=== PATIENT | female | born 1985 | race Caucasian/White ===

== ENCOUNTER 2020-11-11 15:47 | Observation (INO) ==
--- NOTE | 2020-11-11 16:12 | Emergency Department Note ---
History of Present Illness General Chief complaint: Cardiac Assessment Stated complaint: CHEST PAIN,SHOULDER PAIN,MIGHT HAVE FEVER,FATIGUE Time Seen by Provider: 11/11/20 15:56 Source: patient Mode of arrival: ambulatory Limitations: no limitations History of Present Illness Provider complaint: Chest pain Onset (ago): day(s) 2 Location: chest Radiation: back Maximum Pain Intensity: 1 Quality: + constant Exacerbated By: + movement Associated symptoms: + shortness of breath Treatments prior to arrival: NSAID This is a 35-year-old female resents emergency department with complaints of chest pain. Patient states 2 days ago she initially developed pain in the area over her left shoulder/left trapezius. States that perhaps this was musculoskeletal in nature due to working on her computer at home. She then states pain seemed to come down laterally along the lateral aspect the ribs and then anteriorly to the ribs under the left breast. Patient states the pain is worse with movement including specifically laughing, or taking a deep breath. P atient states pain is also worse lying down and she feels short of breath laying down. Patient denies accompanying fevers, chills, nausea, vomiting, leg swelling, calf pain, or recent URI symptoms. No prior cardiac history. No significant family history of heart problems or PE/DVT. Patient denies any more recent illness over the last several weeks. Patient has been vaccinated for Covid, finishing her Pfizer series approximately 1 month ago. No use of OCPs or other hormonal therapy. Pt seen during a time of high acuity and national emergency pandemic while wearing PPE. Home Medications Medication Instructions Recorded Confirmed Type cefdinir 300 mg PO BID 4 Days #8 cap 11/12/20 Rx doxycycline hyclate 100 mg PO BID 4 Days #8 cap 11/12/20 Rx rivaroxaban [Xarelto] 15 mg PO BID 21 Days #42 tab 11/12/20 Rx Allergies Allergy/AdvReac Type Severity Reaction Status Date / Time No Known Allergies Allergy Unverified 11/11/20 16:54 Past Med/Surg History Medical History No pertinent past medical history Surgical History (Updated 11/11/20 @ 19:58 by Ryan Kellogg) No pertinent past surgical history Family History Denies family history of Deep vein thrombosis Pulmonary embolism Social History (Updated 11/11/20 @ 19:59 by Ryan Kellogg) Smoking Status: Never smoker Second Hand Exposure: No; Hx Alcohol Use: No Hx Substance Use: No Preferred Language: Georgian Communication Ability: Effective Surveillance Systems Engineer Required: No Beliefs That Will Affect Care: None marital status: Current Living Situation: Spouse current occupational status: employed 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 and A total of 10 systems reviewed and were otherwise negative Physical Exam Vital Signs Vital Signs - 24 hr 11/11/20 15:50 11/11/20 16:18 11/11/20 16:26 Temperature 36.7 C Temperature Source Oral Pulse Rate 106 H 83 Pulse Rate from SpO2 Sensor 81 Pulse Rhythm Regular Pulse Strength Normal Respiratory Rate 20 20 Respiratory Effort / Characteristics Non-Labored Spontaneous Respiratory Depth Normal Respiratory Pattern Regular Blood Pressure 123/89 116/70 Blood Pressure Mean 100 85 Blood Pressure Position Sitting Pulse Oximetry 97 97 Pulse Oximetry [Exercises] Pulse Oximetry [Resting] Oxygen Delivery Method Room Air Room Air Oxygen Flow Rate 99 Sepsis Recent Fever Within 48 Hours No Sepsis New/Unexplained Change in Mental Status No Sepsis Action Taken by Nursing No Action Required 11/11/20 17:00 11/11/20 18:00 11/11/20 18:39 Temperature Temperature Source Pulse Rate 75 81 70 Pulse Rate from SpO2 Sensor 76 77 71 Pulse Rhythm Pulse Strength Respiratory Rate 19 19 Respiratory Effort / Characteristics Respiratory Depth Respiratory Pattern Blood Pressure 107/81 Blood Pressure Mean 89 Blood Pressure Position Pulse Oximetry 97 98 98 Pulse Oximetry [Exercises] Pulse Oximetry [Resting] Oxygen Delivery Method Oxygen Flow Rate Sepsis Recent Fever Within 48 Hours Sepsis New/Unexplained Change in Mental Status Sepsis Action Taken by Nursing 11/11/20 18:42 Temperature Temperature Source Pulse Rate Pulse Rate from SpO2 Sensor Pulse Rhythm Pulse Strength Respiratory Rate Respiratory Effort / Characteristics Respiratory Depth Respiratory Pattern Blood Pressure Blood Pressure Mean Blood Pressure Position Pulse Oximetry Pulse Oximetry [Exercises] 97 Pulse Oximetry [Resting] 97 Oxygen Delivery Method Room Air Oxygen Flow Rate Sepsis Recent Fever Within 48 Hours Sepsis New/Unexplained Change in Mental Status Sepsis Action Taken by Nursing GENERAL: alert, well appearing, well nourished, no distress, non-toxic EYE EXAM: normal conjunctiva, PERRL and EOM's grossly intact OROPHARYNX: no exudate, no erythema, lips, buccal mucosa, and tongue normal and mucous membranes are moist NECK: supple, no nuchal rigidity, no adenopathy, non-tender LUNGS: Clear to auscultation. Normal chest wall mechanics, no w/r/r HEART: no murmurs, S1 normal and S2 normal ABDOMEN: abdomen soft, non-tender, normo-active bowel sounds, no masses, no rebound or guarding. BACK: Back is symmetrical on inspection and there is no deformity, no midline tenderness, no CVA tenderness. SKIN: no rashes and no bruising UPPER EXTREMITIES: upper extremities are grossly normal. FROM, nml pulses b/l. LOWER EXTREMITIES: No pitting edema. FROM, nml pulses b/l. NEURO EXAM: Normal sensorium, cranial nerves II-XII grossly intact, normal speech, no gross weakness of arms, no gross weakness of legs. Gross sensation intact. Course Course 170: Patient updated on results and need for additional CT imaging. She verbalized understanding. 1824: Patient updated on CT results. Again denies family history of DVT/PE. No recent immobilization or immobility, no recent trauma or injury. No use of hormonal agents or OCPs. 183: Discussed with Dr. Kellogg. Administered Medications Discontinued Medications Acetaminophen (Acetaminophen 500 Mg Tab) 1,000 mg PO Q6H PRN PRN Reason: Pain or Fever Stop: 12/11/20 22:50 Last Admin: 11/12/20 01:05 Dose: 1,000 mg Documented by: [id number] Cefdinir (Cefdinir 300 Mg Cap) 300 mg PO ONE STA Stop: 11/11/20 20:18 Last Admin: 11/11/20 21:06 Dose: 300 mg Documented by: [id number] Cefdinir (Cefdinir 300 Mg Cap) 300 mg PO BID [facility]; Protocol Stop: 11/19/20 08:59 Last Admin: 11/12/20 08:41 Dose: 300 mg Documented by: [id number] Doxycycline Hyclate (Doxycycline Hyclate 100 Mg Cap) 100 mg PO BID KATHIE Stop: 11/18/20 22:50 Last Admin: 11/12/20 08:40 Dose: 100 mg Documented by: [id number] Admin: 11/12/20 01:01 Dose: 100 mg Documented by: [id number] Enoxaparin Sodium (Enoxaparin 1 Mg/Kg) 60 mg 1 mg/kg (60 mg) SC NOW STA Stop: 11/11/20 18:42 Last Admin: 11/12/20 07:15 Dose: Not Given Documented by: [id number] Enoxaparin Sodium (Enoxaparin Inj 60 Mg/0.6 Ml Syr) 60 mg 1 mg/kg (60 mg) SQ NOW STA Stop: 11/11/20 19:13 Last Admin: 11/11/20 19:24 Dose: 60 mg Documented by: [id number] Enoxaparin Sodium (Enoxaparin Inj 60 Mg/0.6 Ml Syr) 60 mg SQ Q12H KATHIE Stop: 12/12/20 07:59 Last Admin: 11/12/20 08:41 Dose: 60 mg Documented by: [id number] Acetaminophen (Ofirmev) 1,000 mg in 100 mls @ 400 mls/hr IV NOW STA Stop: 11/11/20 18:18 Last Infusion: 11/11/20 19:15 Dose: 0 mls/hr Documented by: [id number] Admin: 11/11/20 18:40 Dose: 400 mls/hr Documented by: [id number] Sodium Chloride (Nss 1000ml) 1,000 mls @ 100 mls/hr IV .Q10H KATHIE Stop: 11/12/20 08:50 Last Infusion: 11/12/20 10:32 Dose: 0 mls/hr Documented by: [id number] Admin: 11/12/20 01:00 Dose: 100 mls/hr Documented by: [id number] Ioversol (Optiray 320 125ml) 87 ml IV ONCE ONE Stop: 11/11/20 17:36 Last Admin: 11/11/20 17:35 Dose: 87 ml Documented by: [id number] Lidocaine (Lidocaine 5% 1 Patch) 3 patch TD Q24H KATHIE Stop: 12/11/20 22:59 Last Admin: 11/12/20 08:42 Dose: 1 patch Documented by: [id number] Admin: 11/12/20 01:03 Dose: Not Given Documented by: [id number] Miscellaneous (Remove Lidoderm Patch) 1 ea N/A Q24H KATHIE Stop: 12/12/20 07:59 Last Admin: 11/12/20 08:41 Dose: Not Given Documented by: [id number] Medical Decision Making Differential Diagnosis Differential diagnoses includes but is not limited to acute coronary syndrome, myocardial infarction, pericarditis, pulmonary embolus, aortic dissection, pneumonia, pneumothorax, musculoskeletal, shingles, esophageal. Medical Records Attestation: I reviewed the patient's medical records. Home Medications Current Medication List: was personally reviewed by me Laboratory Data Attestation: I reviewed the patient's lab results. Result diagrams: 11/11/20 16:15 11/12/20 05:29 Lab Results 11/11/20 11/11/20 11/11/20 Range/Units 16:15 16:15 16:15 WBC 7.80 (4.8-10.8) K/uL RBC 4.06 L (4.2-5.4) M/uL Hgb 12.7 (12.0-16.0) g/dL Hct 36.6 L (37-47) % MCV 90.1 (80-100) fL MCH 31.3 (25-34) pg MCHC 34.7 (32-36) g/dL RDW Std Deviation 41.0 (36.4-46.3) fL RDW Coeff of Gayle 12.4 (11.5-14.5) % Plt Count 281 (130-400) K/uL MPV 10.1 (7.4-10.4) fL Immature Gran % (Auto) 0.3 % Neut % (Auto) 68.4 % Lymph % (Auto) 17.7 % Curry % (Auto) 11.8 % Eos % (Auto) 1.5 % Baso % (Auto) 0.3 % Neut # (Auto) 5.34 (1.4-6.5) K/uL Lymph # (Auto) 1.38 (1.2-3.4) K/uL Curry # (Auto) 0.92 H (0.11-0.59) K/uL Eos # (Auto) 0.12 (0-0.5) K/uL Baso # (Auto) 0.02 (0-0.2) K/uL Immature Gran # (Auto) 0.02 (0.00-0.02) K/uL D-Dimer 1290 H* (0-500) ug/L FEU Sodium 138 (136-145) mmol/L Potassium 4.1 (3.5-5.1) mmol/L Chloride 107 (98-107) mmol/L Carbon Dioxide 26 (21-32) mmol/L Anion Gap 5.0 (3-11) BUN 10 (7-18) mg/dl Creatinine 0.54 L (0.6-1.2) mg/dl Est Cr Clr Drug Dosing 135.1 ml/min Est GFR ( Amer) 140.7 ml/min Est GFR (Non-Af Amer) 121.4 ml/min BUN/Creatinine Ratio 18.6 (10-20) Glucose 94 (70-99) mg/dl Calcium 8.7 (8.5-10.1) mg/dl Magnesium 1.9 (1.8-2.4) mg/dl Total Bilirubin 0.4 (0.2-1) mg/dl AST 10 L (15-37) U/L ALT 18 (12-78) U/L Alkaline Phosphatase 36 L (45-117) U/L Troponin I < 0.015 (0-0.045) ng/ml NT-Pro-B Natriuret Pep 7 (0-450) pg/ml Total Protein 7.1 (6.4-8.2) gm/dl Albumin 3.4 (3.4-5.0) gm/dl Globulin 3.7 (2.5-4.0) gm/dl Albumin/Globulin Ratio 0.9 (0.9-2) HCG, Qual (Negative) 11/11/20 Range/Units 16:15 WBC (4.8-10.8) K/uL RBC (4.2-5.4) M/uL Hgb (12.0-16.0) g/dL Hct (37-47) % MCV (80-100) fL MCH (25-34) pg MCHC (32-36) g/dL RDW Std Deviation (36.4-46.3) fL RDW Coeff of Gayle (11.5-14.5) % Plt Count (130-400) K/uL MPV (7.4-10.4) fL Immature Gran % (Auto) % Neut % (Auto) % Lymph % (Auto) % Curry % (Auto) % Eos % (Auto) % Baso % (Auto) % Neut # (Auto) (1.4-6.5) K/uL Lymph # (Auto) (1.2-3.4) K/uL Curry # (Auto) (0.11-0.59) K/uL Eos # (Auto) (0-0.5) K/uL Baso # (Auto) (0-0.2) K/uL Immature Gran # (Auto) (0.00-0.02) K/uL D-Dimer (0-500) ug/L FEU Sodium (136-145) mmol/L Potassium (3.5-5.1) mmol/L Chloride (98-107) mmol/L Carbon Dioxide (21-32) mmol/L Anion Gap (3-11) BUN (7-18) mg/dl Creatinine (0.6-1.2) mg/dl Est Cr Clr Drug Dosing ml/min Est GFR ( Amer) ml/min Est GFR (Non-Af Amer) ml/min BUN/Creatinine Ratio (10-20) Glucose (70-99) mg/dl Calcium (8.5-10.1) mg/dl Magnesium (1.8-2.4) mg/dl Total Bilirubin (0.2-1) mg/dl AST (15-37) U/L ALT (12-78) U/L Alkaline Phosphatase (45-117) U/L Troponin I (0-0.045) ng/ml NT-Pro-B Natriuret Pep (0-450) pg/ml Total Protein (6.4-8.2) gm/dl Albumin (3.4-5.0) gm/dl Globulin (2.5-4.0) gm/dl Albumin/Globulin Ratio (0.9-2) HCG, Qual Negative (Negative) Imaging Data Radiologist's Impression: Chest X-Ray 11/11/20 16:09 XR chest 1V portable CLINICAL HISTORY: Chest pain. COMPARISON STUDY: No previous studies for comparison. FINDINGS: Lung volumes are normal. Lungs are clear. There is no pneumothorax. There is a possible trace left pleural effusion. Cardiac size is normal. Mediastinal contours are normal. There is no evidence for pulmonary edema. IMPRESSION: Possible trace left pleural effusion. ACT 112: Negative or not required by law. Electronically signed by: Jerome Herrera M.D. 11/11/2020 4:45 PM Chest CTA 11/11/20 17:04 CT ANGIOGRAM OF THE CHEST CLINICAL HISTORY: PE COMPARISON STUDY: No previous studies for comparison. TECHNIQUE: Following the IV administration of 87 mL of Optiray, CT angiogram of the thorax was performed from the thoracic inlet to the lung bases utilizing the pulmonary embolus protocol. Images are reviewed in the axial, sagittal, and coronal planes. IV contrast was administered without complication. MIP imaging was performed. A dose lowering technique was utilized adhering to the principles of ALARA. CT DOSE: 234.06 mGy.cm FINDINGS: There is adequate opacification within main pulmonary artery. Few small pulmonary emboli are seen within distal branches of the pulmonary artery supplying bilateral lower lobes. Main pulmonary artery is slightly prominent. Heart is normal in size without evidence of right heart strain or pericardial effusion. No coronary calcifications demonstrated. Visualized portion of thyroid gland shows no evidence of focal lesions. Esophagus is normal. There is no axillary, supra clavicle or internal mammary lymphadenopathy seen. Mild soft tissue prominence within the anterior mediastinum interspersed with fat likely representing thymic remnants. No definite mediastinal lymphadenopathy seen however evaluation of mediastinum is limited due to beam hardening artifact from vasculature. Tracheobronchial tree is patent. Small atelectasis is seen in bilateral bases. Small left pleural effusion is demonstrated. This study is acquired during partial expiratory phase, evaluation of lung parenchyma is limited due to respiratory motion artifact. Small area of consolidative opacity seen within the lingula associated with septal thickening. No pleural effusions are visualized. Limited evaluation of upper abdomen shows no evidence of acute abnormalities. Limited evaluation of osseous structures shows no significant degenerative changes. IMPRESSION: Multiple acute pulmonary emboli within pulmonary artery branches supplying right and left lower lobes. No right heart strain. Mild prominence of pulmonary artery. Results of the study of the communicated with emergency department. Small left pleural effusion. Atelectasis and possible pneumonia within the lung bases. ACT 112: Positive. There are findings on this exam that require communication between the performing entity and the patient following Patient Test Result Information Act ([place] Act 112) guidelines. The above report was generated using voice recognition software. It may contain grammatical, syntax or spelling errors. Electronically signed by: Charisma Gallegos DO 11/11/2020 5:56 PM ECG Data Attestation: I personally reviewed and interpreted this ECG as follows: Indication: + chest pain Rate (beats per minute): 83 Rhythm: + normal sinus ECG Intervals/blocks: + Normal QRS and + Normal QT ECG Carson: + Normal ECG ST segments: + Normal ST segments MDM Narrative This is a 35-year-old female who presents with 2 days of increased left-sided chest pain and pain with breathing. Patient was not hypoxic and was hemodynamically stable on arrival in the emergency room. Due to mild tachycardia initially noted a D-dimer was among the labs sent. Labs are reassuring with the exception of elevated D-dimer which prompted additional CT imaging. Initial chest x-ray raised question of slight small left pleural effusion. CT revealed multiple bilateral lower lobe PEs with question of accompanying infiltrate versus evolving pulmonary infarct. Patient's chest pain and difficulty with breathing is likely secondary to this. Due to no history or symptoms that would suggest patient was at risk for this and no history of DVT/PE in her or family, I discussed with her additional inpatient evaluation for hypercoagulable work-up, echo and discussion of outpatient anticoagulation. Case discussed with hospitalist for additional management. No obvious right heart strain. Troponin negative. Patient remained hemodynamically stable in the emergency room. Patient had no signs or symptoms to suggest DVT at this time. No other recent illness to suggest accompanying infection. Patient is fully vaccinated against coronavirus, I have a low suspicion that this is a complication secondary to vaccination. No evidence of pericarditis/myocarditis. Patient started on Lovenox IM in the emergency room. An order was placed for continuous cardiac monitoring. The monitor shows a rate of _88_ with _normal sinus rhythm. Impression & Plan Atypical chest pain, Pulmonary embolism Discharge Plan Visit Data Chief Complaint: Cardiac Assessment Stated Complaint: CHEST PAIN,SHOULDER PAIN,MIGHT HAVE FEVER,FATIGUE ED Provider: Bailey Milligan Discharge Problem: Atypical chest pain, Pulmonary embolism Patient Disposition: Admitted As Inpatient Discharge Instructions Interventions: ED Discharge Assessment Last Done: 11/11/20 22:03 Discharge Problem: Pulmonary embolism Qualifiers: Pulmonary embolism type: multiple subsegmental (without acute cor pulmonale) Qualified Code(s): I26.94 - Multiple subsegmental pulmonary emboli without acute cor pulmonale
[2020-11-11 16:33] LABS: Basophils # (auto) 0.02 K/uL (0-0.2); Basophils % (auto) 0.3 %; Eosinophils # (auto) 0.12 K/uL (0-0.5); Eosinophils % (auto) 1.5 %; Hematocrit (blood only) 36.6 % (37-47); Hemoglobin 12.7 g/dL (12.0-16.0); Immature Granulocytes # (auto) 0.02 K/uL (0.00-0.02); Immature Granulocytes % (auto) 0.3 %; Lymphocytes # (auto) 1.38 K/uL (1.2-3.4); Lymphocytes % (auto) 17.7 %; Mean Corpuscular Hemoglobin 31.3 pg (25-34); Mean Corpuscular Hgb Conc 34.7 g/dL (32-36); Mean Corpuscular Volume 90.1 fL (80-100); Mean Platelet Volume 10.1 fL (7.4-10.4); Monocytes # (auto) 0.92 K/uL (0.11-0.59); Monocytes % (auto) 11.8 %; Neutrophils # (auto) 5.34 K/uL (1.4-6.5); Neutrophils % (auto) 68.4 %; Platelet Count 281 K/uL (130-400); RDW Coefficient of Variation 12.4 % (11.5-14.5); Red Blood Count 4.06 M/uL (4.2-5.4)
--- NOTE | 2020-11-11 16:47 | XRay Report ---
XR chest 1V portable CLINICAL HISTORY: Chest pain. COMPARISON STUDY: No previous studies for comparison. FINDINGS: Lung volumes are normal. Lungs are clear. There is no pneumothorax. There is a possible tra ce left pleural effusion. Cardiac size is normal. Mediastinal contours are normal. There is no eviden ce for pulmonary edema. IMPRESSION: Possible trace left pleural effusion. ACT 112: Negative or not required by law. Electronically signed by: Jerome Herrera M.D. 11/11/2020 4:45 PM
[2020-11-11 16:50] LABS: Alanine Aminotransferase 18 U/L (12-78); Albumin Level 3.4 gm/dl (3.4-5.0); Aspartate Aminotransferase 10 U/L (15-37); BUN Creatinine Ratio 18.6 (10-20); Blood Urea Nitrogen 10 mg/dl (7-18); Calcium 8.7 mg/dl (8.5-10.1); Carbon Dioxide 26 mmol/L (21-32); Chloride 107 mmol/L (98-107); Creatinine Clr Calc Pharmacy 135.1 ml/min; Est GFR (African American) 140.7 ml/min; Est GFR (Non-African American) 121.4 ml/min; Glucose 94 mg/dl (70-99); Magnesium 1.9 mg/dl (1.8-2.4); Potassium 4.1 mmol/L (3.5-5.1); Sodium 138 mmol/L (136-145)
[2020-11-11 16:55] LABS: Albumin Globulin Ratio 0.9 (0.9-2); Alkaline Phosphatase 36 U/L (45-117); Bilirubin,Total 0.4 mg/dl (0.2-1); Globulin 3.7 gm/dl (2.5-4.0); NT Pro B Type Natriuretic Pept 7 pg/ml (0-450); Total Protein 7.1 gm/dl (6.4-8.2); Troponin I < 0.015 ng/ml (0-0.045)
[2020-11-11 17:02] LABS: D Dimer 1290 ug/L FEU (0-500)
[2020-11-11 17:25] LABS: Pregnancy Test, Serum Negative (Negative)
[2020-11-11] MEDS ORDERED: OPTIRAY 320 125ml IV ONE (17:35)
--- NOTE | 2020-11-11 17:57 | CT Scan Report ---
CT ANGIOGRAM OF THE CHEST CLINICAL HISTORY: PE COMPARISON STUDY: No previous studies for comparison. TECHNIQUE: Following the IV administration of 87 mL of Optiray, CT angiogram of the thorax was perfor med from the thoracic inlet to the lung bases utilizing the pulmonary embolus protocol. Images are re viewed in the axial, sagittal, and coronal planes. IV contrast was administered without complication. MIP imaging was performed. A dose lowering technique was utilized adhering to the principles of ALA RA. CT DOSE: 234.06 mGy.cm FINDINGS: There is adequate opacification within main pulmonary artery. Few small pulmonary emboli are seen within distal branches of the pulmonary artery supplying bilatera l lower lobes. Main pulmonary artery is slightly prominent. Heart is normal in size without evidence of right heart strain or pericardial effusion. No coronary c alcifications demonstrated. Visualized portion of thyroid gland shows no evidence of focal lesions. Esophagus is normal. There is no axillary, supra clavicle or internal mammary lymphadenopathy seen. Mild soft tissue promi nence within the anterior mediastinum interspersed with fat likely representing thymic remnants. No d efinite mediastinal lymphadenopathy seen however evaluation of mediastinum is limited due to beam porsche dening artifact from vasculature. Tracheobronchial tree is patent. Small atelectasis is seen in bilateral bases. Small left pleural effusion is demonstrated. This study is acquired during partial expiratory phase, evaluation of lung parenchyma is limited due to respiratory motion artifact. Small area of consolidative opacity seen within the lingula associated with septal thickening. No pleural effusions are visualized. Limited evaluation of upper abdomen shows no evidence of acute abnormalities. Limited evaluation of osseous structures shows no significant degenerative changes. IMPRESSION: Multiple acute pulmonary emboli within pulmonary artery branches supplying right and left lower lobes . No right heart strain. Mild prominence of pulmonary artery. Results of the study of the communicate d with emergency department. Small left pleural effusion. Atelectasis and possible pneumonia within the lung bases. ACT 112: Positive. There are findings on this exam that require communication between the performing entity and the patient following Patient Test Result Information Act [place] Act 112) guidelines. The above report was generated using voice recognition software. It may contain grammatical, syntax o r spelling errors. Electronically signed by: Charisma Gallegos DO 11/11/2020 5:56 PM
[2020-11-11] MEDS ORDERED: ACETAMINOPHEN 1,000 MG/100 ML VIAL IV STA (18:04)
[2020-11-11] MEDS ORDERED: ENOXAPARIN 1 MG/KG SC STA (18:41)
--- NOTE | 2020-11-11 18:46 | History & Physical Report ---
Date of Service November 11, 2020 Assessment & Plan (1) Pulmonary embolism: Unprovoked. No recent surgery, prolonged immobility, prolonged travel, COVID illness (patient is vaccinated, and her COVID test here is negative), or personal/family history of VTE. I reviewed the CT with radiology - the lingular infiltrate could be infarction but unlikely. She will need a repeat CT chest in 6-8 weeks to ensure all infiltrates have resolved, and that there are no suspicious lesions. Plan - * lovenox 1mg/kg BID - first dose now * investigate cost of eliquis or xarelto tomorrow * b/l LE venous dopplers * treat her pleuritic pain * send hypercoagulable work-up in am - homocysteine, prothrombin gene mutation, lupus anticoagulant, factor 5 leiden mutation, antithrombin 3 level, etc; defer on protein C/S due to the acute event * she has mild pulmonary artery dilatation on CT - obtain echo to eval PA pressures, right heart, etc. (2) Atypical chest pain: 2nd to PEs. 2nd to lingular infiltrate which is abutting the pleura. Treat pain with tylenol prn, norco prn, morphine for refractory pain, lidoderm patches. (3) Pneumonia: There are b/l infiltrates in the bases, worse on left, with a lingular co nsolidation/groundglass opacity. She has had poor appetite, fatigue, subjective fever/chills - thus, can't rule out infectious pneumonia. COVID-19 is negative. Will treat for CAP with omnicef 300mg BID x 7 days; doxy 100mg BID x 7 days for atypical coverage. Her clinical picture is rather odd, and she will need close f/u to ensure all infiltrates have resolved, especially the lingular infiltrate. (4) Abnormal CT scan, chest: Lingular infiltrate abutting the pleura on left. Could be pulmonary infarction from PE, but unlikely per radiology. More likely that this is pneumonia. Treat as such with antibiotics. HOWEVER, needs repeat CT chest in about 6-8 weeks to ensure there is no malignancy present in that region. (5) Pleural effusion: left. minimal-mild. could be 2nd to PEs, pneumonia, or other lung process. CT chest in 6-8 weeks as noted above. History of Present Illness Chief Complaint: chest pain/left shoulder pain Primary Care Provider: Sarahi Chamorro MD Very pleasant 35yo female with no PMH presents with 2 days of simply not feeling well. During this time period she has had subjective fevers/sweats, cold chills, mildly poor appetite, and pleuritic chest discomfort. The chest discomfort has been subcostal bilaterally but much worse on the left. Laughing, sudden movements, deep breathing and laying down flat in bed all make the pain worse. Laying on her right side or raising the head of the bed makes the pain much better/tolerable. Additionally she developed left shoulder pain in the last 24 hours. Denies cough, rigors, abdominal pain, loss of taste/smell, nasal congestion, sore throat, nausea, emesis, body aches or arthralgias. Is fully vaccinated against COVID-19, having received 2 doses of Pfizer vaccine, with 2nd dose about 1 month ago. No recent sick contacts. No recent travel. No prolonged immobility. No recent surgeries. No OCP use or tobacco use. Up until this illness she has been in good health and feeling well. She mentions she and her are avid runners, although they haven't been doing as much running in the last 6 weeks. Allergies Allergy/AdvReac Type Severity Reaction Status Date / Time No Known Allergies Allergy Unverified 11/11/20 16:54 Home Medications Medication Instructions Recorded Confirmed Type No Known Home Medications 11/11/20 11/11/20 History Past Med/Surg History Medical History No pertinent past medical history Surgical History (Updated 11/11/20 @ 19:58 by Ryan Kellogg) No pertinent past surgical history Family History Denies family history of Deep vein thrombosis Pulmonary embolism Social History (Updated 11/11/20 @ 19:59 by Ryan Kellogg) Smoking Status: Never smoker Hx Alcohol Use: No Hx Substance Use: No marital status: Current Living Situation: Spouse current occupational status: employed 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; 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 How many Children do You have: 0 Feels Safe at Home: Yes Physical Activity Frequency: Daily Review of Systems Constitutional: as per Subjective / HPI, + fever, + chills, + fatigue and + anorexia; no sweats, no body aches and no weight loss Eyes: no worsening vision Ear, Nose, Mouth, Throat: no ear pain, no nasal congestion and no sore throat Respiratory: + dyspnea (with taking deep breaths), + dyspnea on exertion, + pain on inspiration and + pain with cough; no cough, no chest congestion, no hemoptysis, no sputum production and no wheezing Cardiovascular: as per Subjective / HPI, + chest pain and + orthopnea; no edema Gastrointestinal: no abdominal pain, no nausea, no vomiting, no diarrhea/loose stools and no blood in stools Genitourinary: no dysuria LMP - 2 days ago Musculoskeletal: no back pain and no joint pain Integumentary: no rash Neurologic: no localized weakness and no loss of sensation Psychiatric: no depression Endocrine: no history of diabetes Hematologic / Lymphatic: no lymphadenopathy and no unexplained weight loss Physical Exam Constitutional: + thin; no acute distress and no altered mental status Eyes: PERRL ENMT: external ear and nose normal, oropharynx normal Ears: no TM abnormality Mouth: no oropharynx abnormality Neck: trachea midline Thyroid: + thyroid nodule (? -- left upper lobe, mobile, <1cm) Respiratory: Auscultation: + diminished lung sounds (left base ) and + rales (faint, minimal, left base); no wheezes Cardiovascular: Rate/Rhythm: regular rate and regular rhythm Heart Sounds: normal S1, normal S2 and + murmur (1/6 CHECO RUSB) Vessels: posterior tibial pulses present and dorsalis pedis pulses present; no JVD Extremities: no edema Gastrointestinal (Abdomen): normal bowel sounds, soft, nontender, no h epatosplenomegaly Musculoskeletal: no cyanosis or clubbing, extremities motor strength 5/5 Skin: no rashes, warm and dry Neurologic: deep tendon reflexes 2+ bilaterally and moves all extremities; no focal motor deficits Psychiatric: A+Ox3, euthymic affect Lymphatic: no cervical lymphadenopathy Results & Data Results & [facility] ([facility]) Vital Signs (Past 12 Hours) Vital Signs Temp Pulse Resp BP Pulse Ox Pulse Ox Pulse Ox 11/11/20 18:42 97 97 11/11/20 18:39 70 107/81 98 11/11/20 18:00 81 19 98 11/11/20 17:00 75 19 97 11/11/20 16:18 83 20 116/70 97 11/11/20 15:50 36.7 C 106 H 20 123/89 97 Laboratory Results Labs 11/11/20 11/11/20 11/11/20 16:15 16:15 16:15 WBC 7.80 RBC 4.06 L Hgb 12.7 Hct 36.6 L MCV 90.1 MCH 31.3 MCHC 34.7 RDW Std Deviation 41.0 RDW Coeff of Gayle 12.4 Plt Count 281 MPV 10.1 Immature Gran % (Auto) 0.3 Neut % (Auto) 68.4 Lymph % (Auto) 17.7 [place] % (Auto) 11.8 Eos % (Auto) 1.5 Baso % (Auto) 0.3 Neut # (Auto) 5.34 Lymph # (Auto) 1.38 [place] # (Auto) 0.92 H Eos # (Auto) 0.12 Baso # (Auto) 0.02 Immature Gran # (Auto) 0.02 D-Dimer 1290 H* Sodium 138 Potassium 4.1 Chloride 107 Carbon Dioxide 26 Anion Gap 5.0 BUN 10 Creatinine 0.54 L Est Cr Clr Drug Dosing 135.1 Est GFR ( Amer) 140.7 Est GFR (Non-Af Amer) 121.4 BUN/Creatinine Ratio 18.6 Glucose 94 Calcium 8.7 Magnesium 1.9 Total Bilirubin 0.4 AST 10 L ALT 18 Alkaline Phosphatase 36 L Troponin I < 0.015 NT-Pro-B Natriuret Pep 7 Total Protein 7.1 Albumin 3.4 Globulin 3.7 Albumin/Globulin Ratio 0.9 HCG, Qual COVID-19 Eval Order SARS-CoV-2 (PCR) 11/11/20 11/11/20 11/11/20 16:15 18:47 18:47 WBC RBC Hgb Hct MCV MCH MCHC RDW Std Deviation RDW Coeff of Gayle Plt Count MPV Immature Gran % (Auto) Neut % (Auto) Lymph % (Auto) [place] % (Auto) Eos % (Auto) Baso % (Auto) Neut # (Auto) Lymph # (Auto) [place] # (Auto) Eos # (Auto) Baso # (Auto) Immature Gran # (Auto) D-Dimer Sodium Potassium Chloride Carbon Dioxide Anion Gap BUN Creatinine Est Cr Clr Drug Dosing Est GFR ( Amer) Est GFR (Non-Af Amer) BUN/Creatinine Ratio Glucose Calcium Magnesium Total Bilirubin AST ALT Alkaline Phosphatase Troponin I NT-Pro-B Natriuret Pep Total Protein Albumin Globulin Albumin/Globulin Ratio HCG, Qual Negative COVID-19 Eval Order Covid19 at [facility] SARS-CoV-2 (PCR) NEGATIVE Diagnostic Findings Chest X-Ray 11/11/20 16:09 XR chest 1V portable CLINICAL HISTORY: Chest pain. COMPARISON STUDY: No previous studies for comparison. FINDINGS: Lung volumes are normal. Lungs are clear. There is no pneumothorax. There is a possible trace left pleural effusion. Cardiac size is normal. Mediastinal contours are normal. There is no evidence for pulmonary edema. IMPRESSION: Possible trace left pleural effusion. ACT 112: Negative or not required by law. Electronically signed by: Jerome Herrera M.D. 11/11/2020 4:45 PM Chest CTA 11/11/20 17:04 CT ANGIOGRAM OF THE CHEST CLINICAL HISTORY: PE COMPARISON STUDY: No previous studies for comparison. TECHNIQUE: Following the IV administration of 87 mL of Optiray, CT angiogram of the thorax was performed from the thoracic inlet to the lung bases utilizing the pulmonary embolus protocol. Images are reviewed in the axial, sagittal, and c oronal planes. IV contrast was administered without complication. MIP imaging was performed. A dose lowering technique was utilized adhering to the principles of ALARA. CT DOSE: 234.06 mGy.cm FINDINGS: There is adequate opacification within main pulmonary artery. Few small pulmonary emboli are seen within distal branches of the pulmonary artery supplying bilateral lower lobes. Main pulmonary artery is slightly prominent. Heart is normal in size without evidence of right heart strain or pericardial effusion. No coronary calcifications demonstrated. Visualized portion of thyroid gland shows no evidence of focal lesions. Esophagus is normal. There is no axillary, supra clavicle or internal mammary lymphadenopathy seen. Mild soft tissue prominence within the anterior mediastinum interspersed with fat likely representing thymic remnants. No definite mediastinal lymphadenopathy seen however evaluation of mediastinum is limited due to beam hardening artifact from vasculature. Tracheobronchial tree is patent. Small atelectasis is seen in bilateral bases. Small left pleural effusion is demonstrated. This study is acquired during partial expiratory phase, evaluation of lung pa renchyma is limited due to respiratory motion artifact. Small area of consolidative opacity seen within the lingula associated with septal thickening. No pleural effusions are visualized. Limited evaluation of upper abdomen shows no evidence of acute abnormalities. Limited evaluation of osseous structures shows no significant degenerative changes. IMPRESSION: Multiple acute pulmonary emboli within pulmonary artery branches supplying right and left lower lobes. No right heart strain. Mild prominence of pulmonary artery. Results of the study of the communicated with emergency department. Small left pleural effusion. Atelectasis and possible pneumonia within the lung bases. ACT 112: Positive. There are findings on this exam that require communication between the performing entity and the patient following Patient Test Result Information Act ([place] Act 112) guidelines. The above report was generated using voice recognition software. It may contain grammatical, syntax or spelling errors. Electronically signed by: Charisma Gallegos DO 11/11/2020 5:56 PM EKG - my reading - NSR, no ST changes Code Status & VTE Plan Code Status full PG Care Time/CCT Total # of Minutes Spent Total Time Spent with Patient: Total time spent is greater than 50% in coordination of care (as documented) at patient's floor/unit and/or counseling patient: Coding Level of Care Code 11048 Initial Inpt Care Lvl 2 Diagnoses Pulmonary embolism I26.94 Pulmonary embolism type: multiple subsegmental (without acute cor pulmonale) Atypical chest pain R07.89 Pneumonia J18.9 Laterality: bilateral Lung location: lower lobe of lung Pneumonia type: due to unspecified organism Abnormal CT scan, chest R93.89 Pleural effusion J90 (1) Pulmonary embolism Pulmonary embolism type: multiple subsegmental (without acute cor pulmonale) Qualified Code(s): I26.94 - Multiple subsegmental pulmonary emboli without acute cor pulmonale (2) Pneumonia Laterality: bilateral Lung location: lower lobe of lung Pneumonia type: due to unspecified organism Qualified Code(s): J18.9 - Pneumonia, unspecified organism
[2020-11-11] MEDS ORDERED: ENOXAPARIN INJ 60 MG/0.6 ML SYR SQ STA (19:12)
[2020-11-11] MEDS ORDERED: CEFDINIR 300 MG CAP PO STA (20:17)
[2020-11-11] MEDS ORDERED: ACETAMINOPHEN 500 MG TAB PO PRN (22:51)
[2020-11-11] MEDS ORDERED: HYDROCODONE/ACETAMOPHEN 5/325MG TAB PO PRN (22:51)
[2020-11-11] MEDS ORDERED: SODIUM CHLORIDE 0.9% 1000ML 1,000 ML IV SCH (22:51)
[2020-11-11] MEDS ORDERED: ONDANSETRON INJ 2 MG/ML 2 ML VIAL IV PRN (22:51)
[2020-11-11] MEDS ORDERED: MoRPHine SULFATE 2 MG/ML CARP IV PRN (22:51)
[2020-11-12] MEDS: DOXYCYCLINE HYCLATE 100 MG CAP PO SCH ×2 (01:01→08:40)
[2020-11-12] MEDS: LIDOCAINE 5% 1 PATCH TD SCH ×2 (01:03→08:42)
[2020-11-12 06:24] LABS: BUN Creatinine Ratio 24.1 (10-20); Calcium 8.6 mg/dl (8.5-10.1); Creatinine Clr Calc Pharmacy 156.1 ml/min; Est GFR (African American) 149.4 ml/min; Est GFR (Non-African American) 128.9 ml/min; Potassium 4.1 mmol/L (3.5-5.1)
[2020-11-12] MEDS ORDERED: ENOXAPARIN INJ 60 MG/0.6 ML SYR SQ SCH (08:00)
--- NOTE | 2020-11-12 08:56 | Ultrasound Report ---
US venous doppler LE BI CLINICAL HISTORY: b/l PEs; assess for DVT COMPARISON STUDY: No previous studies for comparison. FINDINGS: Real-time and color flow Doppler imaging were performed. Flow was seen within the femoral, popliteal and calf veins with no intraluminal thrombus demonstrated. The saphenous vein is patent. IMPRESSION: No evidence of deep venous thrombosis. ACT 112: Negative or not required by law. The above report was generated using voice recognition software. It may contain grammatical, syntax o r spelling errors. Electronically signed by: Charisma Gallegos DO 11/12/2020 8:55 AM
[2020-11-12] MEDS ORDERED: CEFDINIR 300 MG CAP PO SCH (09:00)
--- NOTE | 2020-11-12 10:53 | XCELERA ---
[id number]
[2020-11-12] MEDS ORDERED: oxyCODONE HCL IR 5 MG TAB (IMMEDIATE RELEASE) PO PRN (12:53)
--- NOTE | 2020-11-12 13:04 | Electrocardiogram Report ---
Test Reason : Blood Pressure : / mmHG Vent. Rate : 083 BPM Atrial Rate : 083 BPM P-R Int : 142 ms QRS Dur : 078 ms QT Int : 370 ms P-R-T Axes : 051 060 035 degrees QTc Int : 434 ms Normal sinus rhythm Normal ECG No previous ECGs available Confirmed by Jose Jerez ([id number]) on 11/12/2020 1:04:28 PM Referred By: Confirmed By:Tacho Jerez
--- NOTE | 2020-11-12 13:22 | Discharge Summary ---
Date of Service November 12, 2020 Admission HPI Per Admitting Provider Very pleasant 35yo female with no PMH presents with 2 days of simply not feeling well. During this time period she has had subjective fevers/sweats, cold chills, mildly poor appetite, and pleuritic chest discomfort. The chest discomfort has been subcostal bilaterally but much worse on the left. Laughing, sudden movements, deep breathing and laying down flat in bed all make the pain worse. Laying on her right side or raising the head of the bed makes the pain much better/tolerable. Additionally she developed left shoulder pain in the last 24 hours. Denies cough, rigors, abdominal pain, loss of taste/smell, nasal congestion, sore throat, nausea, emesis, body aches or arthralgias. Is fully vaccinated against COVID-19, having received 2 doses of Pfizer vaccine, with 2nd dose about 1 month ago. No recent sick contacts. No recent travel. No prolonged immobility. No recent surgeries. No OCP use or tobacco use. Up until this illness she has been in good health and feeling well. She mentions she and her are avid runners, although they haven't been doing as much running in the last 6 weeks. Admission Exam Per Admitting Provider Constitutional: + thin; no acute distress and no altered mental status Eyes: PERRL ENMT: external ear and nose normal, oropharynx normal Ears: no TM abnormality Mouth: no oropharynx abnormality Neck: trachea midline Thyroid: + thyroid nodule (? -- left upper lobe, mobile, <1cm) Respiratory: Auscultation: + diminished lung sounds (left base ) and + rales (faint, minimal, left base); no wheezes Cardiovascular: Rate/Rhythm: regular rate and regular rhythm Heart Sounds: normal S1, normal S2 and + murmur (1/6 CHECO RUSB) Vessels: posterior tibial pulses present and dorsalis pedis pulses present; no JVD Extremities: no edema Gastrointestinal (Abdomen): normal bowel sounds, soft, nontender, no hepatosplenomegaly Musculoskeletal: no cyanosis or clubbing, extremities motor strength 5/5 Skin: no rashes, warm and dry Neurologic: deep tendon reflexes 2+ bilaterally and moves all extremities; no focal motor deficits Psychiatric: A+Ox3, euthymic affect Lymphatic: no cervical lymphadenopathy Principal Diagnosis Pulmonary Emboli Discharge Exam Constitutional WD/WN, vitals as above Respiratory normal respiratory effort, lungs clear to auscultation Cardiovascular RRR, no murmur, no edema Gastrointestinal (Abdomen) normal bowel sounds, soft, nontender, no hepatosplenomegaly Musculoskeletal no cyanosis or clubbing, extremities motor strength 5/5 Skin no rashes, warm and dry Neurologic moves all extremities and awake; not confused Psychiatric A+Ox3, euthymic affect Discharge Data Allergies Allergy/AdvReac Type Severity Reaction Status Date / Time No Known Allergies Allergy Unverified 11/17/20 10:13 Consultations 11/11/20 18:41 ED Decision to Admit Stat Ordered Studies 11/11/20 17:04 CT angio chest PE protocol Stat 11/11/20 19:46 US venous doppler LE BI Routine Hospital Course (1) Pulmonary embolism: Masha Tineo is a 35 year old female admitted to [facility] from November 11-2020 due to chest pain. She was diagnosed with bilateral pulmonary emboli on CT angiogram. This was treated with Lovenox as an inpatient and she was transitioned to Xarelto on discharge. Suspect her pain is mostly from pleurisy and recommend taking acetaminophen, lidocaine patch and oxycodone as needed for this. Recommend continuation of Xarelto for 6 months. Unclear if this was provoked from prior COVID-19 infection and recent vaccination but would treat as unprovoked. Hypercoagulable panel ordered on admission is outstanding on discharge and she should follow up with her PCP with regards to results of this. (2) Atypical chest pain: (3) Pneumonia: (4) Abnormal CT scan, chest: (5) Pleural effusion: Total Time Total Time Spent Total Time Spent (In Minutes): 45 Total Time Includes: Examination of the Patient, Discharge Planning and Medication Reconciliation Discharge Plan Discharge Items Patient Disposition: Home - Self-Care Reason For Visit: B/L PE'S Discharge Diagnosis: Pulmonary Emboli Activity: Resume your previous activity Non-emergency contact: Primary Care Provider Call non-emergency contact if: you have any medication questions and your symptoms worsen Follow-up/Referrals: Sarahi Chamorro MD [Primary Care Provider] - 11/23/20 9:20 am (1-2 weeks, f/u hypercoagulable panel) Diet: Regular Addtl Attending Provider Instructions: You were admitted to [facility] from November 11-2020 due to chest pain. You were diagnosed with bilateral pulmonary emboli (blood clots in the lung arteries). This was treated with Lovenox as an inpatient and you will be transitioned to Xarelto on discharge. Please take your first dose tonight. Suspect your pain is mostly from pleurisy (inflammation of the pleural lining of your lung) and recommend taking acetaminophen, lidocaine patch (over the counter) and oxycodone as needed for this. Recommend continuation of Xarelto for 6 months. Please follow up with your primary care physician in the next 1-2 weeks with results of your hypercoagulable panel. Kind regards, Dr Villa Pending Studies at Discharge: Yes Stand-Alone Forms: [facility], Smoking Cessation Medications and DC Order Prescriptions: New Xarelto 15 mg tablet 15 mg PO BID 21 Days Qty: 42 RF: 0 No Action Xarelto 20 mg tablet 20 mg PO QPM Qty: 90 RF: 1 Discharge Orders: Discharge Order (Routine); Ordered 11/12/20 Ordered By: Ryan Reza/Other Patient Handouts: Pulmonary Embolism Admission Data Admit Date/Time: 11/11/20 18:46 Attending Provider: Ryan Villa Admit Provider: Ryan Kellogg Primary Care Provider: Sarahi Chamorro Other Interventions: Discharge Summary Assessment (RN) Last Done: 11/12/20 13:22 Coding Level of Care Code D/C Day Management >30 mins Diagnoses Pulmonary embolism I26.94 Pulmonary embolism type: multiple subsegmental (without acute cor pulmonale) Atypical chest pain R07.89 Pneumonia J18.9 Laterality: bilateral Lung location: lower lobe of lung Pneumonia type: due to unspecified organism Abnormal CT scan, chest R93.89 Pleural effusion J90
[2020-11-12] MEDS ORDERED: oxyCODONE IR HOME PACK PO ONE (13:32)
== END 2020-11-12 15:21 | disposition home or self-care (01) ==
LOC: ED 15:47 → INTOOBSV 18:46 → SUATTDRO 18:46 → 2N 18:46
DX: Z79.899 Other long term (current) drug therapy; I26.94 Multiple subsegmental thrombotic pulmonary emboli without acute cor pulmonale; Z79.01 Long term (current) use of anticoagulants; R93.89 Abnormal findings on diagnostic imaging of other specified body structures

== ENCOUNTER 2022-07-29 08:52 | Inpatient (IN) ==
[2022-07-29] MEDS ORDERED: LIDOCAINE 1% LOCAL 20 ML VIAL INFIL PRN (13:20)
[2022-07-29] MEDS ORDERED: OXYTOCIN 30 UNITS/500 ML BAG IV PRN (13:20)
[2022-07-29] MEDS ORDERED: DINOPROSTONE 10 MG INSERT PV ONE (13:58)
--- NOTE | 2022-07-29 14:09 | History & Physical Report ---
Date of Service July 29, 2022 Assessment & Plan (1) Post-dates : Plan: Cervidil for ripening planned (2) Pulmonary embolism: Admission and Anticipated Discharge Date Admission Date: July 29, 2022 History of Present Illness Chief Complaint: induction of labor Primary Care Provider: Bret Navarrete MD 37 F [id number] at 41.1 weeks admitted for IOL for post-dates . GBS is negative. Covid is pending. Patient has a history of bilateral PE in 2020 with protein S deficiency. She was on Lovenox 90mg daily and at 36 weeks she was switched over to Heparin 10,000 Units bid. Allergies Allergy/AdvReac Type Severity Reaction Status Date / Time No Known Allergies Allergy Verified 09/18/21 10:30 Home Medications Medication Instructions Recorded Confirmed Type enoxaparin 100 mg/mL subcutaneous 90 mg subcut QPM 09/15/21 07/29/22 History syringe heparin (porcine) 10,000 unit/mL 10,000 unit 2XD 07/29/22 07/29/22 History injection solution prenat.vits,peace,mqc-aiut-xwrcz 1 tab PO DAILY 07/29/22 07/29/22 History Patient History Medical History History of pleural effusion Protein S deficiency Pulmonary embolism 10/2020, on xarelto, considered unprovoked by pulm, transitioning to heparin at 36 weeks per OB, also following with [facility] heme/onc Right thyroid nodule 1.2 cm, initially found on CT scan of chest for evaluation of bilateral PE in October 2020, ultrasound done 01/2021, referred for FNA 05/17/2021-pt states did not pursue by personal decision/uncertainty on provider recommendation Surgical History S/P wisdom tooth extraction Family History Mother Breast cancer Other Heart disease Denies family history of Ovarian cancer Prostate cancer Diabetes Deep vein thrombosis Myocardial infarction Colorectal cancer Pulmonary embolism Lung disease Cancer Uterine cancer Asthma Social History Smoking Status: Never smoker Second Hand Exposure: No; Hx Alcohol Use: No Hx Substance Use: No Preferred Language: Kenyan Communication Ability: Effective Visual Impairment: No Limitations Hearing Ability: Normal Stone Grader Required: No Beliefs That Will Affect Care: None marital status: Current Living Situation: Spouse current occupational status: employed 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[employer]; 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 How many Children do You have: 0 Other Information That Helps Us Care for You: No Feels Safe at Home: Yes Safety Concerns: Feels Safe At This Time Childhood Exposure to Second-Hand Smoke: No Dental Care, Regularly: Yes Physical Activity Frequency: Daily Seatbelt Use: always Sunscreen Use: Yes Assistive Devices: None OB History SAB at 6weeks in 09/14 [employer] History neg Physical Exam Constitutional: WD/WN, vitals as above Eyes: PERRL, conjunctivae normal, anicteric sclerae Neck: trachea midline, no thyromegaly Respiratory: normal respiratory effort, lungs clear to auscultation Cardiovascular: RRR, no murmur, no edema Gastrointestinal (Abdomen): Inspection/Auscultation: abdomen normal to inspection Musculoskeletal: Extremities: extremities normal to inspection Skin: no rashes, warm and dry Neurologic: patellar DTR's 2+ bilat, sensation intact Psychiatric: A+Ox3, euthymic affect Genitourinary: no vaginal lesions, no adnexal mass OB Exam Abdomen: + fund al height, + vertex and + estimated weight (7.5 lbs) Manual OB Exam: + cervical dilation fingertip, + cervical effacement 40% and 50% and + station high OB Exam Monitor Tracing: + external FHT monitor used, + external uterine monitor used, + category I and + normal FHT variability Results & Data ([facility]) Vital Signs (Past 12 Hours) Vital Signs Temp Pulse Resp BP 07/29/22 12:45 78 109/73 07/29/22 12:40 36.8 C 16 Code Status & VTE Plan VTE Prophylaxis Plan VTE Prophylaxis will be ordered: Yes Monitoring External Monitor Cat 1 (2) Pulmonary embolism Pulmonary embolism type: multiple subsegmental (without acute cor pulmonale) Qualified Code(s): I26.94 - Multiple subsegmental pulmonary emboli without acute cor pulmonale
[2022-07-29 14:20] LABS: Hematocrit (blood only) 36.8 % (37.0-47.0); Hemoglobin 13.5 g/dl (12.0-16.0); Mean Corpuscular Hemoglobin 32.5 pg (25.0-34.0); Mean Corpuscular Hgb Conc 36.7 g/dL (32.0-36.0); Mean Corpuscular Volume 88.5 fL (80.0-100.0); Mean Platelet Volume 12.6 fL (9.4-12.4); Platelet Count 177 K/uL (130-400); RDW Standard Deviation 38.3 fL (36.4-46.3); Red Blood Count 4.16 M/uL (4.20-5.40); White Blood Count 9.66 K/ul (4.8-10.8)
[2022-07-29] MEDS ORDERED: BUTORPHANOL TARTRATE 1 MG/ML VIAL IV PRN (15:25)
--- NOTE | 2022-07-29 15:25 | Labor Progress Brief Note ---
Date of Service July 29, 2022 Assessment & Plan Admission and Anticipated Discharge Date Admission Date: July 29, 2022 Physical Exam Genitourinary: OB Exam Monitor Tracing: + external FHT monitor used, + external uterine monitor used, + category I and + normal FHT variability Cervidil 10 mg placed vaginally Results & Data ([facility]) Vital Signs (Past 12 Hours) Vital Signs Temp Pulse Resp BP 07/29/22 12:45 78 109/73 07/29/22 12:40 36.8 C 16
[2022-07-30] MEDS ORDERED: miSOPROStoL 50 MCG TAB PO SCH (05:30)
[2022-07-30] MEDS ORDERED: ACETAMINOPHEN 325 MG TAB PO PRN (06:05)
--- NOTE | 2022-07-30 11:34 | Progress Note ---
Date of Service July 30, 2022 Assessment & Plan (1) Post-dates : Plan: Induction for post dates Day #2 Received Cytotec + Cervidil Discussed Galeano balloon placement Pt is agreeable to procedure Balloon placed with 30 cc saline. Pt tolerated procedure well Will start low dose Pitocin Admission and Anticipated Discharge Date Admission Date: July 29, 2022 Results & Data ([facility]) Vital Signs (Past 12 Hours) Vital Signs Temp Pulse Resp BP 07/30/22 07:30 36.6 C 16 07/30/22 11:00 36.5 C 07/30/22 11:14 71 114/71 07/30/22 07:35 77 111/57 L 07/30/22 05:36 37.0 C 73 106/72 07/30/22 03:27 70 107/67 07/29/22 23:32 24 07/29/22 23:32 36.7 C 62 24 106/52 L 07/29/22 23:33 68 115/74
--- NOTE | 2022-07-30 11:38 | Obstetrical Progress Note ---
Date of Service July 30, 2022 Assessment & Plan (1) Pulmonary embolism: Plan: pt has hx of VTE seeing gift officer from [place] Pt was on heparin and was told by gift officer to stay off till delivery she is therefore off Heparin SCD's on Admission and Anticipated Discharge Date Admission Date: July 29, 2022 Results & Data ([facility]) Vital Signs (Past 12 Hours) Vital Signs Temp Pulse Resp BP 07/30/22 07:30 36.6 C 16 07/30/22 11:00 36.5 C 07/30/22 11:14 71 114/71 07/30/22 07:35 77 111/57 L 07/30/22 05:36 37.0 C 73 106/72 07/30/22 03:27 70 107/67 (1) Pulmonary embolism Pulmonary embolism type: multiple subsegmental (without acute cor pulmonale) Qualified Code(s): I26.94 - Multiple subsegmental pulmonary emboli without acute cor pulmonale
[2022-07-30] MEDS ORDERED: OXYTOCIN 30 UNITS/500 ML BAG IV PRN ×2 (11:39→12:21)
[2022-07-30] MEDS: LACTATED RINGER'S 1,000 ML IV PRN ×3 (12:01→17:56)
[2022-07-30] MEDS ORDERED: ePHEDrine sulfate 50 MG/ML AMP ONE (12:49)
[2022-07-30] MEDS ORDERED: fentaNYL citrate 100 MCG/2 ML VIAL ONE ×2 (12:49→19:53)
[2022-07-30] MEDS ORDERED: LIDOCAINE 2%/EPINEPHRINE 1:200,000 20 ML SDV ONE (12:49)
[2022-07-30] MEDS ORDERED: SODIUM CHLORIDE 0.9% INJ 10 ML VIAL ONE (12:49)
[2022-07-30] MEDS ORDERED: BUPIVACAINE 0.25% 30 ML VIAL ONE (12:49)
[2022-07-30] MEDS ORDERED: fentaNYL 2MCG/ML ROPIVACAINE 1.25MG/ML 100 ML BAG EPI ONE (12:50)
--- NOTE | 2022-07-30 13:15 | Anesthesiology Consultation ---
Date of Service July 30, 2022 Assessment & Plan (1) Encounter for pre-operative examination: Chart Review Chart Review: Acceptable Risk for Labor Epidural History Height/Weight Height: 5 ft 7 in Weight: 78.471 kg Allergies Allergy/AdvReac Type Severity Reaction Status Date / Time No Known Allergies Allergy Verified 09/18/21 10:30 Medications Home Medications Medication Instructions Recorded Confirmed Last Taken enoxaparin 100 mg/mL subcutaneous 90 mg subcut QPM 09/15/21 07/29/22 06/29/22 syringe heparin (porcine) 10,000 unit/mL 10,000 unit 2XD 07/29/22 07/29/22 07/28/22 injection solution prenat.vits,peace,ivy-pful-pxnmq 1 tab PO DAILY 07/29/22 07/29/22 07/28/22 Active Medications Generic Name Dose Route Start Last Admin Trade Name Freq PRN Reason Stop Dose Admin Acetaminophen 650 mg 07/30/22 06:05 07/30/22 06:17 Acetaminophen 325 Mg Tab PO 08/29/22 06:04 650 mg Q4H PRN Administration Headache Lactated Ringer's 1,000 mls @ 125 mls/hr 07/29/22 13:20 07/30/22 12:25 Lr IV 07/31/22 13:19 999 mls/hr .Q8H PRN Infusion L&D Protocol Protocol Oxytocin 30 units in 500 mls @ 2 mls/hr 07/30/22 11:39 07/30/22 12:02 Pitocin IV 08/01/22 11:38 0.12 units/hr .Q24H PRN 2 mls/hr Labor Induction/Augmentation Administration Protocol 0.12 UNITS/HR Misoprostol 50 mcg 07/30/22 05:30 07/30/22 05:37 Misoprostol 50 Mcg Tab PO 08/29/22 05:29 50 mcg Q4H KATHIE Administration Past Medical History Medical History History of pleural effusion Protein S deficiency Pulmonary embolism 10/2020, on xarelto, considered unprovoked by pulm, transitioning to heparin at 36 weeks per OB, also following with PSH heme/onc Right thyroid nodule 1.2 cm, initially found on CT scan of chest for evaluation of bilateral PE in October 2020, ultrasound done 01/2021, referred for FNA 05/17/2021-pt states did not pursue by personal decision/uncertainty on provider recommendation Past Family History Family History Mother Breast cancer Other Heart disease Denies family history of Ovarian cancer Prostate cancer Diabetes Deep vein thrombosis Myocardial infarction Colorectal cancer Pulmonary embolism Lung disease Cancer Uterine cancer Asthma Past Surgical History Surgical History S/P wisdom tooth extraction Social History Smoking Status: Never smoker Hx Alcohol Use: No Hx Substance Use: No Physical Exam Vital Signs Last Vital Signs Temp 36.5 C 07/30/22 11:00 Pulse 64 07/30/22 12:28 Resp 16 07/30/22 11:00 BP 125/85 07/30/22 12:28 Testing Laboratory Results 07/29/22 13:46
[2022-07-30] MEDS ORDERED: ePHEDrine sulfate 50 MG/ML AMP IV PRN ×2 (13:48→21:01)
[2022-07-30] MEDS ORDERED: ONDANSETRON INJ 2 MG/ML 2 ML VIAL IV PRN ×2 (13:48→21:01)
[2022-07-30] MEDS ORDERED: fentaNYL 2MCG/ML ROPIVACAINE 1.25MG/ML 100 ML BAG EPI PRN (13:48)
[2022-07-30] MEDS ORDERED: NALOXONE HCL 0.4 MG/1 ML VIAL/CARP IV PRN ×2 (13:48→21:01)
--- NOTE | 2022-07-30 13:58 | Obstetrical Progress Note ---
Date of Service July 30, 2022 Assessment & Plan (1) Post-dates : Plan: Pt doing well palomino bulb fell out Epidural analgesia in place FHR; CAT1 Ctx 2-4mins VE; 4-5/ 90/-1bulging membranes AROM with amnio hook- Mild meconium Continue with Pitocin augmentation anticipant VD Admission and Anticipated Discharge Date Admission Date: July 29, 2022 Results & Data ([facility]) Vital Signs (Past 12 Hours) Vital Signs Temp Pulse Resp BP Pulse Ox 07/30/22 07:30 36.6 C 16 07/30/22 13:54 96 07/30/22 13:54 73 07/30/22 13:54 75 107/69 07/30/22 13:52 81 110/72 07/30/22 13:50 72 103/60 07/30/22 13:49 78 96 07/30/22 13:48 71 105/63 07/30/22 13:46 76 103/66 07/30/22 13:44 76 110/73 93 07/30/22 13:42 72 106/68 07/30/22 13:41 75 90 07/30/22 13:40 83 110/65 07/30/22 13:39 75 91 07/30/22 13:37 70 105/64 07/30/22 13:34 68 93 07/30/22 13:31 70 92 07/30/22 13:29 81 94 07/30/22 13:24 81 94 07/30/22 13:14 74 121/60 07/30/22 12:28 64 125/85 07/30/22 11:00 36.5 C 16 07/30/22 11:14 71 114/71 07/30/22 07:35 77 111/57 L 07/30/22 05:36 37.0 C 73 106/72 07/30/22 03:27 70 107/67
--- NOTE | 2022-07-30 17:25 | Obstetrical Progress Note ---
Date of Service July 30, 2022 Assessment & Plan (1) Post-dates : Plan: Pt doing well VE ;10/100/0 station Pt has no urge to push Anticipate passive descent will start pushing when she feels vaginal pressure Admission and Anticipated Discharge Date Admission Date: July 29, 2022 Results & Data ([facility]) Vital Signs (Past 12 Hours) Vital Signs Temp Pulse Resp BP Pulse Ox 07/30/22 07:30 36.6 C 16 07/30/22 17:19 74 99 07/30/22 17:16 58 L 120/80 07/30/22 17:14 67 99 07/30/22 17:09 59 L 99 07/30/22 17:04 65 98 07/30/22 17:00 16 07/30/22 17:00 16 07/30/22 17:01 70 111/72 07/30/22 16:59 69 99 07/30/22 16:54 75 98 07/30/22 16:52 60 90 07/30/22 16:49 36.9 C 64 97 07/30/22 16:44 63 97 07/30/22 16:45 72 100/60 07/30/22 16:39 61 95 07/30/22 16:34 70 97 07/30/22 16:30 74 16 105/64 07/30/22 16:29 58 L 95 07/30/22 16:24 59 L 96 07/30/22 16:19 74 96 07/30/22 16:14 66 97 07/30/22 16:15 72 99/68 L 07/30/22 16:09 60 96 07/30/22 16:04 69 97 07/30/22 16:00 70 16 97/66 L 07/30/22 15:59 70 97 07/30/22 15:54 76 97 07/30/22 15:49 65 97 07/30/22 15:47 67 103/65 07/30/22 15:44 60 95 07/30/22 15:39 61 97 07/30/22 15:34 60 97 07/30/22 15:30 60 18 97/57 L 07/30/22 15:29 58 L 96 07/30/22 15:24 57 L 97 07/30/22 15:00 16 07/30/22 15:00 36.7 C 16 07/30/22 15:22 59 L 97/52 L 07/30/22 15:19 66 96 07/30/22 15:14 65 94 07/30/22 15:09 68 94 07/30/22 15:04 76 96 07/30/22 14:59 84 96 07/30/22 14:54 77 96 07/30/22 14:49 72 94 07/30/22 14:44 64 94 07/30/22 14:42 98 H 110/84 07/30/22 14:39 66 95 07/30/22 14:30 16 07/30/22 14:30 16 07/30/22 14:34 79 95 07/30/22 14:29 64 95 07/30/22 14:24 69 95 07/30/22 14:19 79 95 07/30/22 14:15 67 110/66 07/30/22 14:14 60 94 07/30/22 14:11 90 154/67 H 07/30/22 14:09 67 95 07/30/22 14:04 79 95 07/30/22 14:00 16 07/30/22 14:00 16 07/30/22 14:03 80 107/76 07/30/22 13:35 16 07/30/22 13:35 16 07/30/22 13:59 66 95 07/30/22 13:57 71 107/62 07/30/22 13:54 96 07/30/22 13:54 73 07/30/22 13:54 75 107/69 07/30/22 13:52 81 110/72 07/30/22 13:50 72 103/60 07/30/22 13:49 78 96 07/30/22 13:48 71 105/63 07/30/22 13:46 76 103/66 07/30/22 13:44 76 110/73 93 07/30/22 13:42 72 106/68 07/30/22 13:41 75 90 07/30/22 13:40 83 110/65 07/30/22 13:39 75 91 07/30/22 13:37 70 105/64 07/30/22 13:34 68 93 07/30/22 13:31 70 92 07/30/22 13:29 81 94 07/30/22 13:24 81 94 07/30/22 13:14 74 121/60 07/30/22 12:28 64 125/85 07/30/22 11:00 36.5 C 16 07/30/22 11:14 71 114/71 07/30/22 07:35 77 111/57 L 07/30/22 05:36 37.0 C 73 106/72
[2022-07-30] MEDS ORDERED: NURSING L&D Epidural Breakthrough Pain Update ONE (18:41)
[2022-07-30] MEDS ORDERED: TERBUTALINE SULFATE 1 MG/ML VIAL ONE (19:17)
[2022-07-30] MEDS ORDERED: ceFAZolin 2000MG 2,000 MG/15 ML SYR IV ONE (19:34)
[2022-07-30] MEDS ORDERED: METHYLERGONOVINE MALEATE 0.2 MG/ML AMP ONE (19:44)
[2022-07-30] MEDS ORDERED: PROPOFOL IV EMULSION 10 MG/ML 20 ML VIAL IV ONE (19:44)
[2022-07-30] MEDS ORDERED: SUCCINYLCHOLINE 100MG/5ML SYR IV ONE (19:44)
[2022-07-30] MEDS ORDERED: OXYTOCIN 10 UNITS/ML 10ML VIAL ONE ×2 (19:45→20:47)
[2022-07-30] MEDS ORDERED: ceFAZolin 330 MG/ML 1 GM VIAL ONE (19:45)
[2022-07-30] MEDS ORDERED: MIDAZOLAM HCL 1 MG/ML 2ML VIAL ONE (19:46)
[2022-07-30] MEDS ORDERED: CISATRACURIUM BESYLATE IV SOLN 2 MG/ML 10 ML VIAL IV ONE (19:59)
[2022-07-30] MEDS ORDERED: MoRPHine SULFATE PF 1 MG/ML 10 ML AMP/VIAL ONE (20:15)
[2022-07-30] MEDS ORDERED: ONDANSETRON INJ 2 MG/ML 2 ML VIAL ONE (20:41)
[2022-07-30] MEDS ORDERED: DEXAMETHASONE SOD INJ 4 MG/ML VIAL ONE (20:42)
--- NOTE | 2022-07-30 20:47 | XRay Report ---
KUB CLINICAL HISTORY: Incorrect instrument count status post section delivery. FINDINGS: An AP, portable, supine abdominal radiograph is obtained. No prior studies are available fo r comparison at the time of dictation. There is a nonobstructed abdominal bowel gas pattern. A large soft tissue density projecting over the lower abdomen and pelvis likely represents the post-gravid ut erus. An indeterminant catheter or wire projects over the spine. No additional radiodense foreign bod y is seen. Skin clips project over the pelvis. The bony structures appear intact. IMPRESSION: 1. An indeterminate wire or catheter projects of the spine. Clinical correlation will be required. 2. No additional radiodense foreign body is seen. 3. A large soft tissue density projecting over the lower abdomen and pelvis likely represents the pos tgravid uterus. Electronically signed by: Kevin Francisco M.D. 07/30/2022 8:46 PM
[2022-07-30] MEDS ORDERED: NALOXONE HCL 1 MG in SODIUM CHLORIDE 0.9% 1000ML 1,000 ML IV PRN (21:01)
[2022-07-30] MEDS ORDERED: PROMETHAZINE HCL 25 MG in SODIUM CHLORIDE 0.9% 50 ML IV PRN (21:01)
[2022-07-30] MEDS ORDERED: NALBUPHINE HCL INJ 10 MG/ML AMP IV PRN (21:01)
[2022-07-30] MEDS ORDERED: NALOXONE HCL 0.08 MG in SYRINGE 1.8 ML IV PRN (21:01)
[2022-07-30] MEDS ORDERED: diphenhydrAMINE 50 MG/ML VIAL IV PRN (21:01)
[2022-07-30] MEDS ORDERED: LACTATED RINGER'S 500 ML IV PRN (21:01)
[2022-07-30] MEDS ORDERED: MoRPHine SULFATE PF 1 MG/ML 10 ML AMP/VIAL EPI ONE (21:01)
[2022-07-30 21:02] LABS: Base Excess Cord Venous Blood -6.3 mEq/L (-7.7-1.9); Cord Venous Blood HCO3 19 mmol/L (18.4-26.8); Cord Venous Blood PCO2 36 mmHg (30.4-57.2); Cord Venous Blood PO2 49 mmHg (14.1-43.3); Cord Venous Blood pH 7.33 (7.20-7.44); O2 Saturation Cord Venous Bld 87.5 % (<68)
[2022-07-30] MEDS ORDERED: MEPERIDINE HCL 25 MG/ML CARP/VIAL IV ONE (21:03)
--- NOTE | 2022-07-30 21:05 | Anesthesia Procedure Note ---
Date of Service July 30, 2022 Anesthesia Post Epidural Note Vital Signs Vital Signs: Temp Pulse Resp BP Pulse Ox 36.9 C 139 H 18 127/72 93 07/30/22 16:49 07/30/22 21:02 07/30/22 19:00 07/30/22 18:47 07/30/22 21:02 Pain Intensity Abdomen: Pain Intensity: 9 Notes Mental Status: alert / awake / arousable Nausea / Vomiting: adequately controlled Pain: adequately controlled Airway Patency, RR, SpO2: stable & adequate BP & HR: stable & adequate Hydration State: stable & adequate Neuraxial Anesthesia: was administered and sensory block is resolving Anesthetic Complications: no major complications apparent Epidural: Removed without complications and With tip intact
[2022-07-30] MEDS ORDERED: KETOROLAC 30 MG/ML VIAL ONE (21:06)
[2022-07-30] MEDS ORDERED: MEPERIDINE HCL 50 MG/ML CARP ONE (21:06)
[2022-07-30] MEDS ORDERED: HYDROCORTISONE ACETATE 25 MG SUPP PR PRN (21:10)
[2022-07-30] MEDS ORDERED: DIPHTHERIA/TETANUS/PERTUSSIS 0.5mL SYR/VIAL (Age 7+yrs) IM ONE (21:10)
[2022-07-30] MEDS ORDERED: SENNA 8.6 MG TAB PO PRN (21:10)
[2022-07-30] MEDS ORDERED: MAGNESIUM HYDROXIDE SUSP 30 ML UDC PO PRN (21:10)
[2022-07-30] MEDS ORDERED: BENZOCAINE 20% AER SPR 82.5 GM CAN EXT PRN (21:10)
[2022-07-30] MEDS: KETOROLAC 30 MG/ML VIAL IV PRN (21:11)
[2022-07-30] MEDS ORDERED: SODIUM CHLORIDE 0.9% 1000ML 1,000 ML IV SCH (21:15)
[2022-07-30] MEDS ORDERED: NO NARCOTICS OR SEDATIVES SCH (21:15)
[2022-07-30] MEDS ORDERED: HYDROmorphone INJ 0.5 MG/0.5 ML SYR IV PRN (21:31)
--- NOTE | 2022-07-30 21:34 | Anesthesiology Progress Note ---
Date of Service July 30, 2022 Anesthesia Post Procedure Vital Signs Vital Signs: Temp Pulse Resp BP Pulse Ox 07/30/22 07:30 36.6 C 16 07/30/22 21:31 61 119/65 07/30/22 21:28 63 100 07/30/22 21:23 64 99 07/30/22 21:21 62 113/72 07/30/22 21:20 60 91 07/30/22 21:18 64 96 07/30/22 21:13 87 85 L 07/30/22 21:12 91 H 92 07/30/22 21:08 70 100 07/30/22 21:03 69 100 07/30/22 21:02 139 H 93 07/30/22 20:57 93 07/30/22 20:57 130 H 07/30/22 20:57 137 H 91 07/30/22 19:21 79 99 07/30/22 19:16 63 100 07/30/22 19:11 70 100 07/30/22 19:00 18 07/30/22 19:00 18 07/30/22 19:07 62 89 L 07/30/22 19:06 59 L 99 07/30/22 19:01 90 100 07/30/22 18:56 63 100 07/30/22 18:51 67 98 07/30/22 18:47 64 127/72 07/30/22 18:46 67 99 07/30/22 18:45 64 106/66 07/30/22 18:41 65 98 07/30/22 18:36 59 L 98 07/30/22 18:31 62 97 07/30/22 18:30 99 H 16 126/77 07/30/22 18:00 18 07/30/22 18:00 18 07/30/22 18:26 63 97 07/30/22 18:21 99 07/30/22 18:21 62 07/30/22 18:21 61 89 L 07/30/22 18:19 63 115/56 L 07/30/22 18:16 96 07/30/22 18:16 73 07/30/22 18:16 96 H 212/140 H 07/30/22 18:11 57 L 100 07/30/22 18:07 63 84 L 07/30/22 18:06 70 100 07/30/22 18:01 68 97 07/30/22 17:59 77 87 L 07/30/22 17:56 91 H 97 07/30/22 17:53 68 87 L 07/30/22 17:49 68 100 07/30/22 17:47 70 162/66 H 07/30/22 17:44 70 97 07/30/22 17:39 83 99 07/30/22 17:34 73 100 07/30/22 17:30 16 07/30/22 17:30 16 07/30/22 17:31 75 124/83 07/30/22 17:29 65 99 07/30/22 17:25 72 88 L 07/30/22 17:24 72 92 07/30/22 17:19 74 99 07/30/22 17:16 58 L 120/80 07/30/22 17:14 67 99 07/30/22 17:09 59 L 99 07/30/22 17:04 65 98 07/30/22 17:00 16 07/30/22 17:00 16 07/30/22 17:01 70 111/72 07/30/22 16:59 69 99 07/30/22 16:54 75 98 07/30/22 16:52 60 90 07/30/22 16:49 36.9 C 64 97 07/30/22 16:44 63 97 07/30/22 16:45 72 100/60 07/30/22 16:39 61 95 07/30/22 16:34 70 97 07/30/22 16:30 74 16 105/64 07/30/22 16:29 58 L 95 07/30/22 16:24 59 L 96 07/30/22 16:19 74 96 07/30/22 16:14 66 97 07/30/22 16:15 72 99/68 L 07/30/22 16:09 60 96 07/30/22 16:04 69 97 07/30/22 16:00 70 16 97/66 L 07/30/22 15:59 70 97 07/30/22 15:54 76 97 07/30/22 15:49 65 97 07/30/22 15:47 67 103/65 07/30/22 15:44 60 95 07/30/22 15:39 61 97 07/30/22 15:34 60 97 07/30/22 15:30 60 18 97/57 L 07/30/22 15:29 58 L 96 07/30/22 15:24 57 L 97 07/30/22 15:00 16 07/30/22 15:00 36.7 C 16 07/30/22 15:22 59 L 97/52 L 07/30/22 15:19 66 96 07/30/22 15:14 65 94 07/30/22 15:09 68 94 07/30/22 15:04 76 96 07/30/22 14:59 84 96 07/30/22 14:54 77 96 07/30/22 14:49 72 94 07/30/22 14:44 64 94 07/30/22 14:42 98 H 110/84 07/30/22 14:39 66 95 07/30/22 14:30 16 07/30/22 14:30 16 07/30/22 14:34 79 95 07/30/22 14:29 64 95 07/30/22 14:24 69 95 07/30/22 14:19 79 95 07/30/22 14:15 67 110/66 07/30/22 14:14 60 94 07/30/22 14:11 90 154/67 H 07/30/22 14:09 67 95 07/30/22 14:04 79 95 07/30/22 14:00 16 07/30/22 14:00 16 07/30/22 14:03 80 107/76 07/30/22 13:35 16 07/30/22 13:35 16 07/30/22 13:59 66 95 07/30/22 13:57 71 107/62 07/30/22 13:54 96 07/30/22 13:54 73 07/30/22 13:54 75 107/69 07/30/22 13:52 81 110/72 07/30/22 13:50 72 103/60 07/30/22 13:49 78 96 07/30/22 13:48 71 105/63 07/30/22 13:46 76 103/66 07/30/22 13:44 76 110/73 93 07/30/22 13:42 72 106/68 07/30/22 13:41 75 90 07/30/22 13:40 83 110/65 07/30/22 13:39 75 91 07/30/22 13:37 70 105/64 07/30/22 13:34 68 93 07/30/22 13:31 70 92 07/30/22 13:29 81 94 07/30/22 13:24 81 94 07/30/22 13:14 74 121/60 07/30/22 12:28 64 125/85 07/30/22 11:00 36.5 C 16 07/30/22 11:14 71 114/71 07/30/22 07:35 77 111/57 L 07/30/22 05:36 37.0 C 73 106/72 07/30/22 03:27 70 107/67 07/29/22 23:32 24 07/29/22 23:32 36.7 C 62 24 106/52 L 07/29/22 23:33 68 115/74 Pain Intensity Abdomen: Pain Intensity: 9 Transfer of Care Handoff Completed per policy Notes Mental Status: alert / awake / arousable Patient Amnestic to Procedure: Yes Nausea / Vomiting: adequately controlled Pain: improving with treatment Airway Patency, RR, SpO2: stable & adequate BP & HR: stable & adequate Hydration State: stable & adequate Anesthetic Complications: no major complications apparent
[2022-07-30] MEDS ORDERED: HYDROmorphone INJ 0.5 MG/0.5 ML SYR ONE (21:36)
[2022-07-30] MEDS: OXYTOCIN 20 UNITS in LACTATED RINGER'S 1,000 ML IV SCH (23:09)
[2022-07-31] MEDS ORDERED: TERBUTALINE SULFATE 1 MG/ML VIAL SQ ONE (02:13)
[2022-07-31] MEDS ORDERED: TERBUTALINE SULFATE 1 MG/ML VIAL ONE (02:16)
[2022-07-31] MEDS ORDERED: LACTATED RINGER'S 1,000 ML IV SCH (05:30)
[2022-07-31 06:57] LABS: Basophils # (auto) 0.02 K/uL (0-0.2); Basophils % (auto) 0.1 %; Eosinophils # (auto) 0.01 K/uL (0-0.50); Eosinophils % (auto) 0.1 %; Hematocrit (blood only) 26.8 % (37.0-47.0); Hemoglobin 9.6 g/dl (12.0-16.0); Immature Granulocytes % (auto) 0.6 %; Lymphocytes # (auto) 1.18 K/uL (1.2-3.4); Lymphocytes % (auto) 7.5 %; Mean Corpuscular Hemoglobin 32.7 pg (25.0-34.0); Mean Corpuscular Hgb Conc 35.8 g/dL (32.0-36.0); Mean Corpuscular Volume 91.2 fL (80.0-100.0); Mean Platelet Volume 12.2 fL (9.4-12.4); Monocytes # (auto) 1.03 K/uL (0.11-0.59); Monocytes % (auto) 6.6 %; Neutrophils % (auto) 85.1 %; Platelet Count 121 K/uL (130-400); RDW Coefficient of Variation 11.9 % (11.5-14.5); RDW Standard Deviation 39.3 fL (36.4-46.3); Red Blood Count 2.94 M/uL (4.20-5.40); White Blood Count 15.64 K/ul (4.8-10.8)
--- NOTE | 2022-07-31 07:15 | Obstetrical Progress Note ---
Date of Service July 31, 2022 Assessment & Plan (1) delivery delivered: s/p c/sec for NR FHR pt doing well hemoglobin is 9 will start iron tabs' Hx of VTE- will restart her Lovenox today at 8 pm pt tells me she is on 60 QD Results & Data ([facility]) Vital Signs (Past 12 Hours) Vital Signs Temp Pulse Resp BP Pulse Ox 07/31/22 04:00 20 95 07/31/22 03:10 20 97 07/31/22 02:00 20 96 07/31/22 01:00 20 96 07/31/22 00:00 20 96 07/30/22 23:00 37.2 C 18 07/30/22 22:30 18 07/30/22 21:10 22 100/64 07/30/22 21:00 37.5 C 22 90/60 L 92 07/30/22 22:01 18 07/30/22 22:01 18 07/30/22 21:51 18 95 07/30/22 21:41 36.7 C 18 95 07/30/22 21:31 18 07/30/22 23:09 90 97 07/30/22 23:04 66 95 07/30/22 23:05 68 94 07/30/22 23:02 66 105/64 07/30/22 22:59 67 94 07/30/22 22:58 65 94 07/30/22 22:54 81 96 07/30/22 22:51 85 94 07/30/22 22:49 81 96 07/30/22 22:46 67 93 07/30/22 22:44 67 97 07/30/22 22:39 71 96 07/30/22 22:35 70 106/65 07/30/22 22:34 68 97 07/30/22 22:29 70 97 07/30/22 22:24 68 98 07/30/22 22:19 70 99 07/30/22 22:08 94 07/30/22 22:08 62 07/30/22 22:08 62 93 07/30/22 22:03 60 94 07/30/22 22:02 56 L 93 07/30/22 22:01 66 103/65 07/30/22 21:58 62 95 07/30/22 21:55 64 93 07/30/22 21:53 63 96 07/30/22 21:51 64 126/61 07/30/22 21:48 61 99 07/30/22 21:43 61 99 07/30/22 21:41 59 L 122/65 07/30/22 21:38 58 L 100 07/30/22 21:33 97 07/30/22 21:33 81 07/30/22 21:33 74 91 07/30/22 21:31 61 119/65 07/30/22 21:28 63 100 07/30/22 21:23 64 99 07/30/22 21:21 62 113/72 07/30/22 21:20 60 91 07/30/22 21:18 64 96 07/30/22 21:13 87 85 L 07/30/22 21:12 91 H 92 07/30/22 21:08 70 100 07/30/22 21:03 69 100 07/30/22 21:02 139 H 93 07/30/22 20:57 93 07/30/22 20:57 130 H 07/30/22 20:57 137 H 91 07/30/22 19:21 79 99 07/30/22 19:16 63 100 07/30/22 19:11 70 100 07/30/22 19:00 18 07/30/22 19:00 18 07/30/22 19:07 62 89 L 07/30/22 19:06 59 L 99 07/30/22 19:01 90 100
[2022-07-31] MEDS ORDERED: LACTATED RINGER'S 500 ML IV ONE (07:21)
[2022-07-31] MEDS: OXYTOCIN 20 UNITS in LACTATED RINGER'S 1,000 ML IV SCH (08:10)
--- NOTE | 2022-07-31 08:13 | Operative Report (OR) ---
INDICATION FOR SURGERY: This is a 37-year-old G1, P0 at 41-plus weeks, who was undergoing induction of labor. She went on to be fully dilated and started to have deep variables. With meconium, heart rate became nonreassuring. Decision was made to perform a stat section. PREOPERATIVE DIAGNOSES: 1. at term. 2. Nonreassuring heart rate with meconium. POSTOPERATIVE DIAGNOSES: 1. at term. 2. Nonreassuring heart rate with meconium. OPERATION: Primary section. SURGEON: Bryce Lazaro MD. OCCUPATIONAL REHABILITATION AIDE: Nenita Lombardi RN. ANESTHESIA: General. DRAINS: None. ESTIMATED BLOOD LOSS: 600 mL. INTRAVENOUS FLUIDS: 1500 mL. URINE OUTPUT: 100 mL of clear urine at the end of the procedure. SPECIMEN: Cord gas and placenta. INTRAOPERATIVE COMPLICATIONS: None. PATIENT CONDITION: Stable. DISPOSITION: Postanesthesia care unit. ATTESTATION: I performed the entire procedure. ATTESTATION FOR OCCUPATIONAL REHABILITATION AIDE: Oil Heat Technician was necessary to help with manipulation and retraction in order to provide a safe surgery. FINDINGS: Infant was in a cephalic presentation with thickened meconium. Uterus and adnexa appeared grossly normal. DESCRIPTION OF PROCEDURE: The patient was taken to the operating room where she was prepped and drap ed in normal sterile fashion. Timeout was called. Pfannenstiel incision was made with a scalpel and carried down to the fascia. Fascia was incised in the midline and extended laterally on both sides. Rectus abdominis was sharply dissected off the fascia. This was done superiorly and inferiorly. Pe ritoneum was identified and entered sharply. Once inside the abdomen, bladder blade was used to retr act the bladder out of the operating field. Vesicouterine peritoneum was sharply dissected off. Low transverse incision was made and extended laterally on both sides. was delivered, cord clampe d and cut and handed over to the waiting pediatric team. Infant's weight and Apgars are in the pedia tric record. Cord blood and cord gases were obtained. Placenta was manually removed. Uterus was ex teriorized and cleared of all clots and debris. Uterus was closed in 2 layers using Vicryl stitch. Uterus was returned to the abdominal cavity. Vesicouterine peritoneum reapproximated with plain sutu re. Peritoneum closed with plain suture. Rectus abdominis muscle approximated with plain suture. T he fascia was closed in a running fashion using Vicryl stitch. Subcutaneous space was closed with pl ain suture and the skin was closed with francois. All instruments were removed from the abdomen and accounted for x2 including sponges, needles, and re tractors. The patient is stable in recovery. Job ID: [id number]
[2022-07-31] MEDS: PRENATAL VITAMIN 1 TAB PO SCH (09:20)
[2022-07-31] MEDS: SIMETHICONE 80 MG CHEW PO SCH ×4 (09:20→20:54)
[2022-07-31] MEDS: DOCUSATE SODIUM 100 MG CAP PO SCH ×2 (09:20→20:52)
[2022-07-31] MEDS: FERROUS SULFATE 325 MG TAB PO SCH (09:21)
[2022-07-31] MEDS: KETOROLAC 30 MG/ML VIAL IV PRN (13:15)
[2022-07-31] MEDS ORDERED: ONDANSETRON INJ 2 MG/ML 2 ML VIAL IV PRN (15:01)
[2022-07-31] MEDS ORDERED: diphenhydrAMINE 50 MG/ML VIAL IV PRN (15:01)
[2022-07-31] MEDS ORDERED: PROMETHAZINE HCL 25 MG in SODIUM CHLORIDE 0.9% 50 ML IV PRN (15:01)
[2022-07-31] MEDS ORDERED: diphenhydrAMINE Capsule 25 MG CAP PO PRN (15:01)
[2022-07-31] MEDS: oxyCODONE/ACETAMINOPHEN 5mg/325mg TAB PO PRN ×2 (16:42→20:52)
[2022-07-31] MEDS: IBUPROFEN 600 MG TAB PO PRN ×2 (16:43→20:54)
[2022-07-31] MEDS ORDERED: bisacodyL 5 MG TABEC PO SCH (20:00)
[2022-07-31] MEDS: ENOXAPARIN INJ 60 MG/0.6 ML SYR SQ SCH (20:50)
[2022-08-01] MEDS: oxyCODONE/ACETAMINOPHEN 5mg/325mg TAB PO PRN ×5 (00:58→21:39)
[2022-08-01] MEDS: IBUPROFEN 600 MG TAB PO PRN ×5 (00:59→21:40)
[2022-08-01 06:53] LABS: Hematocrit (blood only) 24.5 % (37.0-47.0); Hemoglobin 8.7 g/dl (12.0-16.0)
[2022-08-01] MEDS: SIMETHICONE 80 MG CHEW PO SCH ×4 (07:56→21:33)
[2022-08-01] MEDS: PRENATAL VITAMIN 1 TAB PO SCH (07:58)
[2022-08-01] MEDS: DOCUSATE SODIUM 100 MG CAP PO SCH ×2 (07:58→21:33)
[2022-08-01] MEDS: FERROUS SULFATE 325 MG TAB PO SCH (07:58)
--- NOTE | 2022-08-01 10:14 | Obstetrical Progress Note ---
Date of Service August 01, 2022 Subjective Ambulation: ambulating normally Voiding: no voiding problems Passing Gas:: Yes Diet Tolerance:: regular diet Lochia:: Small Feeding Type:: breast feeding Current Pain Level(1-10): 0 doing well Physical Exam Constitutional WD/WN, vitals as above Cardiovascular RRR, no murmur, no edema Gastrointestinal (Abdomen) Inspection/Auscultation: abdomen normal to inspection incision c/d/i Musculoskeletal Extremities: extremities normal to inspection no edema. neg. Lenore's Skin no rashes, warm and dry Neurologic patellar DTR's 2+ bilat, sensation intact Psychiatric A+Ox3, euthymic affect Genitourinary Galeano removed this AM after it was re-inserted last night after pat. unable to void with large post void residual Results & Data ([facility]) Vital Signs (Past 12 Hours) Vital Signs Temp Pulse Resp BP Pulse Ox O2 Del Method 08/01/22 07:30 37 C 77 18 98/65 L Room Air 07/31/22 23:40 Room Air 07/31/22 23:40 36.7 C 81 16 99/65 L 95 Room Air Laboratory Results 07/29/22 07/29/22 07/29/22 13:46 13:46 Unknown WBC 9.66 RBC 4.16 L Hgb 13.5 Hct 36.8 L MCV 88.5 MCH 32.5 MCHC 36.7 H RDW Std Deviation 38.3 RDW Coeff of Gayle 12.0 Plt Count 177 MPV 12.6 H Immature Gran % (Auto) Neut % (Auto) Lymph % (Auto) [place] % (Auto) Eos % (Auto) Baso % (Auto) Neut # (Auto) Lymph # (Auto) [place] # (Auto) Eos # (Auto) Baso # (Auto) Immature Gran # (Auto) Cord ABG pH Cord ABG pCO2 Cord ABG pO2 Cord ABG HCO3 Cord ABG Base Excess Cord ABG O2 Sat Cord VBG pH Cord VBG pCO2 Cord VBG pO2 Cord VBG HCO3 Cord VBG Base Excess Cord VBG O2 Sat Barometric Pressure Blood Gas Comments SARS-CoV-2, RNA, NAAT NEGATIVE Blood Type A Positive Antibody Screen NEGATIVE 07/30/22 07/30/22 07/31/22 19:51 19:51 06:03 WBC 15.64 H RBC 2.94 L Hgb 9.6 L D Hct 26.8 L MCV 91.2 MCH 32.7 MCHC 35.8 RDW Std Deviation 39.3 RDW Coeff of Gayle 11.9 Plt Count 121 L MPV 12.2 Immature Gran % (Auto) 0.6 Neut % (Auto) 85.1 Lymph % (Auto) 7.5 [place] % (Auto) 6.6 Eos % (Auto) 0.1 Baso % (Auto) 0.1 Neut # (Auto) 13.30 H Lymph # (Auto) 1.18 L [place] # (Auto) 1.03 H Eos # (Auto) 0.01 Baso # (Auto) 0.02 Immature Gran # (Auto) 0.10 Cord ABG pH Cancelled Cord ABG pCO2 Cancelled Cord ABG pO2 Cancelled Cord ABG HCO3 Cancelled Cord ABG Base Excess Cancelled Cord ABG O2 Sat Cancelled Cord VBG pH 7.33 Cord VBG pCO2 36 Cord VBG pO2 49 H Cord VBG HCO3 19 Cord VBG Base Excess -6.3 Cord VBG O2 Sat 87.5 H Barometric Pressure Cancelled Blood Gas Comments Cancelled A SARS-CoV-2, RNA, NAAT Blood Type Antibody Screen 08/01/22 06:23 WBC RBC Hgb 8.7 L Hct 24.5 L MCV MCH MCHC RDW Std Deviation RDW Coeff of Gayle Plt Count MPV Immature Gran % (Auto) Neut % (Auto) Lymph % (Auto) [place] % (Auto) Eos % (Auto) Baso % (Auto) Neut # (Auto) Lymph # (Auto) [place] # (Auto) Eos # (Auto) Baso # (Auto) Immature Gran # (Auto) Cord ABG pH Cord ABG pCO2 Cord ABG pO2 Cord ABG HCO3 Cord ABG Base Excess Cord ABG O2 Sat Cord VBG pH Cord VBG pCO2 Cord VBG pO2 Cord VBG HCO3 Cord VBG Base Excess Cord VBG O2 Sat Barometric Pressure Blood Gas Comments SARS-CoV-2, RNA, NAAT Blood Type Antibody Screen
[2022-08-01] MEDS ORDERED: bisacodyL 10 MG SUPP PR PRN (21:10)
[2022-08-01] MEDS: ENOXAPARIN INJ 60 MG/0.6 ML SYR SQ SCH (21:33)
[2022-08-02] MEDS: oxyCODONE/ACETAMINOPHEN 5mg/325mg TAB PO PRN ×5 (03:05→20:15)
[2022-08-02] MEDS: IBUPROFEN 600 MG TAB PO PRN ×5 (03:06→20:16)
[2022-08-02 06:29] LABS: Hematocrit (blood only) 26.7 % (37.0-47.0); Hemoglobin 9.4 g/dl (12.0-16.0); Mean Corpuscular Hemoglobin 32.5 pg (25.0-34.0); Mean Corpuscular Hgb Conc 35.2 g/dL (32.0-36.0); Mean Corpuscular Volume 92.4 fL (80.0-100.0); Mean Platelet Volume 11.4 fL (9.4-12.4); Platelet Count 168 K/uL (130-400); RDW Coefficient of Variation 12.3 % (11.5-14.5); RDW Standard Deviation 41.1 fL (36.4-46.3); Red Blood Count 2.89 M/uL (4.20-5.40); White Blood Count 12.44 K/ul (4.8-10.8)
[2022-08-02 06:44] LABS: Creatinine Clr Calc Pharmacy 161.4 ml/min; Est GFR (African American) 141.4 ml/min
--- NOTE | 2022-08-02 07:57 | Obstetrical Progress Note ---
Date of Service August 02, 2022 Subjective Ambulation: ambulating normally Voiding: no voiding problems Passing Gas:: Yes Diet Tolerance:: regular diet Lochia:: Small Feeding Type:: breast feeding Current Pain Level(1-10): 0 doing well Physical Exam Constitutional WD/WN, vitals as above Gastrointestinal (Abdomen) Inspection/Auscultation: abdomen normal to inspection incision c/d/i Musculoskeletal Extremities: extremities normal to inspection Skin no rashes, warm and dry Neurologic patellar DTR's 2+ bilat, sensation intact Psychiatric A+Ox3, euthymic affect Results & Data ([facility]) Vital Signs (Past 12 Hours) Vital Signs Temp Pulse Resp BP O2 Del Method 08/02/22 00:30 36.7 C 73 18 102/64 Room Air 08/01/22 20:20 36.6 C 60 18 102/62 Room Air
[2022-08-02] MEDS: DOCUSATE SODIUM 100 MG CAP PO SCH (09:03)
[2022-08-02] MEDS: PRENATAL VITAMIN 1 TAB PO SCH (09:03)
[2022-08-02] MEDS: SIMETHICONE 80 MG CHEW PO SCH ×3 (09:03→16:24)
[2022-08-02] MEDS: FERROUS SULFATE 325 MG TAB PO SCH (09:03)
[2022-08-02] MEDS: ENOXAPARIN INJ 60 MG/0.6 ML SYR SQ SCH (20:13)
== END 2022-08-02 21:45 | disposition home or self-care (01) | DRG 786 ==
LOC: 4S1 12:18 → 4E2 07-30 23:25